=== PATIENT | male | born 1940 | race Caucasian/White ===

== ENCOUNTER 2016-10-19 10:53 | Inpatient (IN) | payer MEDICARE ==
--- NOTE | 2016-10-15 21:05 | Admit Criteria Form ---
Admission Criteria Documentation: AMBULATORY SURGERY EXCEPTION CRITERIA Ambulatory Surgery Exception Criteria ( Place 'X' for any and all applicable criteria): Surgery or procedure performed on ambulatory basis may require inpatient stay for[A] ANY ONE of the following(1)(2)(3)(4)(5)(6)(7)(8)(9): [X] I. A preoperative situation, condition, or finding that warrants inpatient stay as indicated by ANY ONE of the following: [] a) Inpatient care needed because of severity of a disease or condition rather than the surgery (eg, severe cardiac or respiratory disease, severe infection) (15) (16 ) (17) (18) [] b) Emergent procedure (eg, angioplasty for acute ischemia)(19) [X] c) Complex surgical approach or situation as indicated by ANY ONE of the following(3): [X] i) Open approach needed instead of usual endoscopic, transcatheter, or other less invasive procedure [] ii) Difficult approach because of previous operation [] iii) Airway monitoring required after open neck procedures(20)(21) [] iv) Large mass requiring unusually extensive dissection [] v) Additional complicating feature requiring inpatient care (eg, drain management)(22(23): [] d) Major surgery in a pt with high anesthetic risk as indicated by ANY ONE of the following (2)(3)(5)(7)(8): [] i) ASA risk class III or higher (severe systemic disease impairing function) [D] [] ii) Advanced age (eg, older than 85 years)(14)(24) [] iii) Symptomatic heart failure(25) [] iv) Symptomatic asthma or COPD(8)(21) [] v) Morbid obesity with hemodynamic or respiratory problems(20)( 21)(26)(27) [] vi) Obstructive sleep apnea(20)(21) [] vii) Former premature infants who are younger than 60 weeks [] viii) High risk for severe postoperative abnormalities (eg, severe postoperative hypocalcemia after parathyroidectomy for severe hyperparathyroidism)(27)( 28) [] ix) Unstable angina(25) [] e) Drug-related risk requiring inpatient stay as indicated by ANY ONE of the following(5)(10)(14)(32)(33) [] i) Procedure requires discontinuing drugs or other therapy (eg , antiarrhythmic medication, antiseizure medication), which necessitates inpatient observation or treatment.(18)(31) [] ii) Major surgery and high risk drug use as indicated by ANY ONE of the following: [] 1) Active abuse of cocaine or similar drug [] 2) Monoamine oxidase inhibitor use [] 3) Other drug identified as posing risk [] f) Inadequate outpatient care situation as indicated by ANY ONE of the following(5)(10)(14)(32)(33) [] i) Patient lives remote from medical facility and procedure has urgent complication potential, and temporary nearby residence cannot be arranged [] ii) Patient will have postprocedure incapacitation and inadequate assistance at home, or alternative level of care cannot be arranged. [] iii) Patient will have long general anesthesia or procedure side effect resolution time, and competent person to stay with patient on first postoperative night at home or alternative level of care cannot be arranged. []iv) Other inadequate outpatient situation that cannot be handled by other means [] II. A perioperative event, condition, or finding that warrants inpatient stay as indicated by ANY ONE of the following (1)(2)(3): [] a) Inadequate physiologic recovery: cardiovascular, respiratory, or hemodynamic status not normal or near preoperative baseline(18) [] b) Hemodynamic instability [] c) Patient not alert with near normal or baseline mental status [] d) Temperature not normal or as expected and not appropriate for outpatient treatment of condition [] e) Ambulatory or appropriate activity level status not yet achieved post procedure [E](34)(35)(36) [] f) Operative site not appropriate (eg, unexpected or excessive drainage or bleeding) [] g) Postoperative effects not resolved or adequately managed (eg, significant pain or vomiting not appropriate for outpatient or next level of care)(10)(12) [] h) Complicating features requiring inpatient care as indicated by ANY ONE of the following(37): [] i) Severe complications of procedure (eg, bowel injury, airway compromise, vascular injury,severe hemorrhage) [] ii) Extensive (eg, dissection far beyond usual scope of procedure ) or prolonged (eg, 120 minutes beyond usual) surgery needed requiring inpatient postoperative care [] iii) Conversion to an open or complex procedure that requires inpatient care (eg, open vs laparoscopic cholecystectomy, abdominal vs vaginal hysterectomy)(38) [] iv) Comorbid condition or test result identified during or post procedure that requires inpatient care (7) [] v) Malignant hyperthermia(30) [] vi) Other complicating feature requiring inpatient care(22)(23) Inpatient stay may be needed until ALL of the following are present (1)(2)(3)(4) (5)(6)(10)(14)(33)(40): []a) Physiologic recovery: cardiovascular, respiratory, and hemodynamic status normal or near preoperative baseline []b) Hemodynamic stability []c) Patient alert, with near normal or baseline mental status []d) Temperature appropriate: patient afebrile or temperature appropriate for outpt treatment of condition []e) Activity level appropriate: ambulatory or appropriate activity level post procedure []f) Operative site appropriate as indicated by ALL of the following: []i) Site dry or with expected drainage []ii) Any blood noted is as expected for procedure. []g) Postoperative effects resolved or managed as indicated by ALL of the following: []i) Pain management appropriate for outpatient (or next level of) care(10) []ii) Minimal nausea and vomiting: if present, successfully treated with oral medication(12) []iii) Headache, dizziness, or drowsiness (if present) are mild. []h) Voiding status acceptable as indicated by ANY ONE of the following: []i) Voiding spontaneously []ii) No voiding but instructions given for follow-up in 6 to 8 hours []iii) Urinary catheter in place, and instructions given for follow-up []i) Complicating features requiring inpatient care manageable at a lower level of care(37) []j) Comorbid conditions manageable at a lower level of care(37) The original [employer] content created by [employer] has been revised. The portions of the content which have been revised are identified through the use of italic text or in bold, and [facility] [employer] has neither reviewed nor approved the modified material. All other unmodified content is copyright [employer]. Please see references footnoted in the original [employer] edition 2016 Admission Criteria Met: Yes
[2016-10-18 10:42] LABS: Basophils % (Auto) 0.8 % (0.0-1.8); Eosinophils % (Auto) 3.5 % (0.0-4.3); Hematocrit 37.9 % (35.5-45.6); Mean Corpuscular HGB Conc 32 % (32-34); Mean Corpuscular Volume 79 fl (84-94); Platelet Count 216 K/mm3 (140-440); Red Blood Count 4.79 M/mm3 (3.65-5.03); Red Cell Distribution Width 15.2 % (13.2-15.2); White Blood Count 5.1 K/mm3 (4.5-11.0)
[2016-10-18 10:43] LABS: Mean Corpuscular Hemoglobin 25 pg (28-32)
[2016-10-18 11:23] LABS: Alanine Aminotransferase 32 units/L (7-56); Albumin 3.8 g/dL (3.9-5); Alkaline Phosphatase 123 units/L (35-129); Anion Gap 18 mmol/L; Blood Urea Nitrogen 11 mg/dL (9-20); Calcium 9.1 mg/dL (8.4-10.2); Carbon Dioxide 27 mmol/L (22-30); Chloride 97.1 mmol/L (98-107); Glucose 115 mg/dL (75-100); Potassium 3.9 mmol/L (3.6-5.0); Sodium 138 mmol/L (137-145); Total Protein 7.5 g/dL (6.3-8.2)
[~2016-10-19 10:53] MED LIST: ANCEF/STERILE WATER 2 GM/20 ML 2 GM/20 ML SYRINGE IV SCH
[2016-10-19] MEDS ORDERED: ceFAZolin 2 GM in NACL 0.9% 100 ML IV ONE (11:30)
--- NOTE | 2016-10-19 12:39 | Anesthesia Consultation ---
<ANDREINA SORTO - Last Filed: 10/19/16 12:38> Anesthesia Consult and Med Hx - Airway Anesthetic Teeth Evaluation: Dentures ROM Head & Neck: Adequate Mental/Hyoid Distance: Adequate Mallampati Class: Class II Intubation Access Assessment: Possibly Difficult - Pulmonary Exam CTA: Yes - Cardiac Exam Cardiac Exam: RRR - Pre-Operative Health Status ASA Pre-Surgery Classification: ASA2 Proposed Anesthetic Plan: General (no previous anesthesia problems) - Pulmonary Hx Smoking: No Hx Sleep Apnea: No - Cardiovascular System Hx Hypertension: Yes (pt denies meds) - Central Nervous System Hx Psychiatric Problems: No - Other Systems Hx Cancer: No Hx Obesity: Yes <MARIA TERESA BANUELOS - Last Filed: 10/19/16 13:44> Anesthesia Consult and Med Hx Date of service: 10/19/16 - Airway Anesthetic Teeth Evaluation: Poor (just few broken teeth) - Cardiovascular System Hx Coronary Artery Disease: No (???cath in past)
[2016-10-19] MEDS ORDERED: PEPCID IV NR (12:42)
[2016-10-19 13:23] LABS: Basophils % (Auto) 0.5 % (0.0-1.8); Eosinophils % (Auto) 3.2 % (0.0-4.3); Hematocrit 36.1 % (35.5-45.6); Hemoglobin 11.8 gm/dl (11.8-15.2); Mean Corpuscular HGB Conc 33 % (32-34); Mean Corpuscular Volume 79 fl (84-94); Platelet Count 214 K/mm3 (140-440); Red Blood Count 4.57 M/mm3 (3.65-5.03); Red Cell Distribution Width 15.1 % (13.2-15.2); White Blood Count 6.3 K/mm3 (4.5-11.0)
[2016-10-19] MEDS: NACL 0.9% 1000 ML 1,000 ML IV SCH (13:28)
[2016-10-19 13:30] LABS: Mean Corpuscular Hemoglobin 26 pg (28-32)
[2016-10-19 13:38] LABS: Alanine Aminotransferase 36 units/L (7-56); Albumin 3.6 g/dL (3.9-5); Alkaline Phosphatase 108 units/L (35-129); Amylase 52 units/L (27-131); Anion Gap 18 mmol/L; Blood Urea Nitrogen 9 mg/dL (9-20); Calcium 8.8 mg/dL (8.4-10.2); Carbon Dioxide 27 mmol/L (22-30); Chloride 100.4 mmol/L (98-107); Glucose 85 mg/dL (75-100); Sodium 141 mmol/L (137-145); Total Protein 7.1 g/dL (6.3-8.2)
[2016-10-19] MEDS ORDERED: SUBLIMAZE IV PRN (13:42)
[2016-10-19] MEDS ORDERED: ZOFRAN IV PRN (13:42)
--- NOTE | 2016-10-19 13:43 | Anesthesia Day of Surgery ---
Anesthesia Day of Surgery - Day of Surgery Patient Examined: Yes Patient H&P Reviewed: Yes Patient is NPO: Yes
[2016-10-19] MEDS ORDERED: DILAUDID ONE (14:06)
[2016-10-19] MEDS ORDERED: SUBLIMAZE ONE ×2 (14:07→15:00)
[2016-10-19] MEDS ORDERED: DIPRIVAN 10 MG/ML IV ONE ×2 (14:07)
[2016-10-19] MEDS ORDERED: ZOFRAN ONE (14:08)
[2016-10-19] MEDS ORDERED: XYLOCAINE MPF 2% ONE (14:08)
[2016-10-19] MEDS ORDERED: DECADRON ONE ×2 (14:08→15:21)
[2016-10-19] MEDS ORDERED: ZEMURON IV ONE (14:08)
[2016-10-19] MEDS ORDERED: NEOSTIGMINE ONE ×2 (14:10→16:28)
[2016-10-19] MEDS ORDERED: ROBINUL ONE ×3 (14:10→16:28)
[2016-10-19] MEDS ORDERED: AMIDATE IV ONE (14:57)
[2016-10-19] MEDS ORDERED: APRESOLINE ONE (15:59)
[2016-10-19] MEDS ORDERED: NACL 0.9% 1000 ML 1,000 ML ONE (16:30)
[2016-10-19] MEDS: DILAUDID IV PRN ×5 (16:42→17:58)
[2016-10-19] MEDS ORDERED: TORADOL IV PRN ×2 (17:19→17:55)
--- NOTE | 2016-10-19 18:39 | Post Anesthesia Evaluation ---
- Post Anesthesia Evaluation Patient Participated: Yes Airway Patent: Yes Stable Respiratory Function: Yes Nausea/Vomiting: No Temp > 96.8F: Yes Pain Manageable: Yes Adequeate Hydration: Yes Anesthesia Complications: No
--- NOTE | 2016-10-19 19:55 | Operative Report ---
PREOPERATIVE DIAGNOSIS: Gallbladder disease. POSTOPERATIVE DIAGNOSIS: Gallbladder disease. PROCEDURE: Open cholecystectomy. SURGEON: Ron Valencia MD. PUBLIC HEALTH NUTRITIONIST: Dr. Laguna. ANESTHESIA: General. ESTIMATED BLOOD LOSS: Minimal. DRAINS: One 19 Federico drain left. COMPLICATIONS: No complications. FINDINGS: This was a difficult case due to the extensive amount of adhesions and inflammation surrounding the right upper quadrant. DESCRIPTION OF PROCEDURE: The patient was taken to the operating room, prepped and draped in usual sterile fashion. A right subcostal incision was made and abdomen entered. Upon entrance into the abdomen, large amount of inflammation was noted, which involved the omentum, the colon and the gallbladder fossa. Slow and tedious dissection was carried out until the gallbladder was able to be identified. Some right subphrenic inflammation and adhesions were also noted, which limited mobility. Gallbladder was grasped at the fundus and retracted towards the right subcostal margin. The cholecystostomy tube that had been placed during the patient's previous admission around 3-4 weeks ago was cut and removed. Wet laps were used to isolate the gallbladder from the transverse colon and stomach. A slow dissection was used with electrocautery from the fundus down towards the infundibulum. Again, a fair amount of oozing was encountered throughout dissection due to all the inflammation. This oozing was controlled with electrocautery and subsequently with the Karyna powder and SurgiSeal. Dissection was slowly carried down towards the neck of the gallbladder. The cystic duct was then identified. The duct was triply clipped and transected. The cystic artery was also doubly clipped and transected. The entire area was then irrigated copiously and dried. Once again, the clips were inspected and noted to be securely in place with no evidence of bleeding or bile leak. The gallbladder fossa area was once again cauterized and subsequently Karyna and SurgiSeal were placed. A 19-Federico was left draining in the gallbladder fossa. The drain was brought through a separate stab incision and secured to the skin with a 2-0 silk suture. The area was once again inspected and noted to be dry. The posterior fascia was then closed with running 0 Vicryl suture. Anterior fascia closed with interrupted #1 Vicryl. Subcutaneous tissues irrigated and skin closed with alonso. The patient tolerated procedure well and left the OR in stable condition. [facility]# [id number] SULTANA/KALIE
[2016-10-19] MEDS: MORPHINE IV PRN (20:58)
[2016-10-19] MEDS: ZOFRAN IV PRN (20:58)
[2016-10-20] MEDS: D5W/0.45% NACL/KCL 20 MEQ 20 MEQ/1,000 ML BAG IV SCH ×3 (00:42→20:21)
[2016-10-20] MEDS: MORPHINE IV PRN ×3 (04:38→20:22)
[2016-10-20] MEDS: ZOFRAN IV PRN ×2 (04:38→12:54)
[2016-10-20 07:56] LABS: Basophils % (Auto) 0.1 % (0.0-1.8); Hematocrit 32.6 % (35.5-45.6); Hemoglobin 10.2 gm/dl (11.8-15.2); Mean Corpuscular HGB Conc 31 % (32-34); Mean Corpuscular Volume 79 fl (84-94); Platelet Count 202 K/mm3 (140-440); Red Blood Count 4.12 M/mm3 (3.65-5.03); Red Cell Distribution Width 15.2 % (13.2-15.2); White Blood Count 12.9 K/mm3 (4.5-11.0)
[2016-10-20 08:00] LABS: Mean Corpuscular Hemoglobin 25 pg (28-32)
[2016-10-20 08:10] LABS: Alanine Aminotransferase 50 units/L (7-56); Alkaline Phosphatase 78 units/L (35-129); Anion Gap 17 mmol/L; BUN/Creatinine Ratio 21.66; Blood Urea Nitrogen 13 mg/dL (9-20); Calcium 8.2 mg/dL (8.4-10.2); Carbon Dioxide 24 mmol/L (22-30); Chloride 100.4 mmol/L (98-107); Glucose 150 mg/dL (75-100); Potassium 4.8 mmol/L (3.6-5.0); Sodium 137 mmol/L (137-145)
--- NOTE | 2016-10-20 11:55 | Progress Note ---
Assessment and Plan POD #1 Pt feeling well. without compl Abd soft. dressings dry -BS low h/h & BP noted. repeat h/h 2 pm. RN instructed to call me with results stable OOB as cher Selected Entries 10/20/16 07:10 Temperature 98.0 F Pulse Rate [ 77 Right] Respiratory 18 Rate Blood Pressure 96/53 [Right Arm] Laboratory Tests 10/19/16 10/20/16 10/20/16 12:50 06:45 06:45 Hgb 11.8 10.2 L Hct 36.1 32.6 L Total Bilirubin 1.20 AST 68 H ALT 50 Alkaline Phosphatase 78 Objective Vital Signs - 12hr 10/20/16 10/20/16 10/20/16 04:45 07:10 10:00 Temperature 97.8 F 98.0 F Pulse Rate [ 84 77 Right] Respiratory 16 18 Rate Blood Pressure 100/56 96/53 [Right Arm] O2 Sat by Pulse 93 93 Oximetry - Labs 10/20/16 06:45 10/20/16 06:45 Diabetes panel 10/19/16 10/20/16 Range/Units 12:50 06:45 Carbon Dioxide 27 24 (22-30) mmol/L BUN 9 13 (9-20) mg/dL Creatinine 0.5 L 0.6 L (0.8-1.5) mg/dL Glucose 85 150 H (75-100) mg/dL Calcium 8.8 8.2 L (8.4-10.2) mg/dL AST 40 68 H (5-40) units/L ALT 36 50 (7-56) units/L Alkaline Phosphatase 108 78 (35-129) units/L Total Protein 7.1 6.0 L (6.3-8.2) g/dL Albumin 3.6 L 3.0 L (3.9-5) g/dL Calcium panel 10/19/16 10/20/16 Range/Units 12:50 06:45 Calcium 8.8 8.2 L (8.4-10.2) mg/dL Albumin 3.6 L 3.0 L (3.9-5) g/dL Pituitary panel 10/19/16 10/20/16 Range/Units 12:50 06:45 Carbon Dioxide 27 24 (22-30) mmol/L BUN 9 13 (9-20) mg/dL Creatinine 0.5 L 0.6 L (0.8-1.5) mg/dL Glucose 85 150 H (75-100) mg/dL Calcium 8.8 8.2 L (8.4-10.2) mg/dL Adrenal panel 10/19/16 10/20/16 Range/Units 12:50 06:45 Carbon Dioxide 27 24 (22-30) mmol/L BUN 9 13 (9-20) mg/dL Creatinine 0.5 L 0.6 L (0.8-1.5) mg/dL Glucose 85 150 H (75-100) mg/dL Calcium 8.8 8.2 L (8.4-10.2) mg/dL Total Bilirubin 0.90 1.20 (0.1-1.2) mg/dL AST 40 68 H (5-40) units/L ALT 36 50 (7-56) units/L Alkaline Phosphatase 108 78 (35-129) units/L Total Protein 7.1 6.0 L (6.3-8.2) g/dL Albumin 3.6 L 3.0 L (3.9-5) g/dL
[2016-10-20 14:02] LABS: Basophils % (Auto) 0.1 % (0.0-1.8); Eosinophils % (Auto) 0.1 % (0.0-4.3); Hematocrit 34.3 % (35.5-45.6); Hemoglobin 10.6 gm/dl (11.8-15.2); Mean Corpuscular HGB Conc 31 % (32-34); Mean Corpuscular Hemoglobin 25 pg (28-32); Mean Corpuscular Volume 81 fl (84-94); Platelet Count 214 K/mm3 (140-440); Red Blood Count 4.25 M/mm3 (3.65-5.03); Red Cell Distribution Width 15.3 % (13.2-15.2); White Blood Count 11.5 K/mm3 (4.5-11.0)
[2016-10-21 05:03] LABS: Basophils % (Auto) 0.1 % (0.0-1.8); Eosinophils % (Auto) 0.8 % (0.0-4.3); Hematocrit 29.3 % (35.5-45.6); Hemoglobin 9.4 gm/dl (11.8-15.2); Mean Corpuscular HGB Conc 32 % (32-34); Mean Corpuscular Volume 80 fl (84-94); Platelet Count 164 K/mm3 (140-440); Red Blood Count 3.67 M/mm3 (3.65-5.03); Red Cell Distribution Width 15.3 % (13.2-15.2); White Blood Count 7.4 K/mm3 (4.5-11.0)
[2016-10-21 05:08] LABS: Mean Corpuscular Hemoglobin 26 pg (28-32)
[2016-10-21] MEDS: D5W/0.45% NACL/KCL 20 MEQ 20 MEQ/1,000 ML BAG IV SCH ×2 (06:03→16:15)
--- NOTE | 2016-10-21 11:09 | Progress Note ---
Assessment and Plan POD #2 Pt feeling well. minimal flatus. OOB to the bathroom. Abd soft. dressings dry stable monitor h/h attempt cl liq diet Selected Entries 10/21/16 04:00 Temperature 98.3 F Pulse Rate [ 70 Right] Respiratory 20 Rate Blood Pressure 118/62 [Right Arm] Laboratory Tests 10/21/16 04:48 WBC 7.4 Hgb 9.4 L Hct 29.3 L Objective Vital Signs - 12hr 10/21/16 10/21/16 10/21/16 00:00 00:54 04:00 Temperature 98.2 F 98.3 F Pulse Rate [ 74 82 70 Right] Respiratory 20 14 20 Rate Blood Pressure 117/60 118/62 [Right Arm] O2 Sat by Pulse 98 96 97 Oximetry 10/21/16 08:01 Temperature Pulse Rate [ Right] Respiratory Rate Blood Pressure [Right Arm] O2 Sat by Pulse 97 Oximetry - Labs 10/21/16 04:48 10/20/16 06:45
[2016-10-21] MEDS ORDERED: NORCO 5/325 PO PRN (11:11)
[2016-10-21 13:34] LABS: Basophils % (Auto) 0.3 % (0.0-1.8); Eosinophils % (Auto) 0.8 % (0.0-4.3); Hematocrit 33.2 % (35.5-45.6); Hemoglobin 10.6 gm/dl (11.8-15.2); Mean Corpuscular HGB Conc 32 % (32-34); Mean Corpuscular Volume 80 fl (84-94); Platelet Count 191 K/mm3 (140-440); Red Blood Count 4.13 M/mm3 (3.65-5.03); Red Cell Distribution Width 15.4 % (13.2-15.2); White Blood Count 7.3 K/mm3 (4.5-11.0)
[2016-10-21 13:39] LABS: Mean Corpuscular Hemoglobin 26 pg (28-32)
--- NOTE | 2016-10-21 14:35 | Progress Note ---
Assessment and Plan S/P Cholecystectomy. Hypertension. DM 2. Patient is doing well post op. His Echo was normal done in early September. Subjective Date of service: 10/21/16 Interval history: Patint is french speaking.Pt seen early September with acute cholycystitis/sepsis with elevated LFT and elevated WBC and fever CT placement of cholycystomy tube for drainage and sent home by september 1st week. CXR c/w lingular infiltrate now had open cholycystectomy Objective Vital Signs Temp Pulse Resp BP Pulse Ox 10/21/16 08:01 97 10/21/16 08:00 98.3 F 84 20 129/73 97 10/21/16 04:00 98.3 F 70 20 118/62 97 10/21/16 00:54 82 14 96 10/21/16 00:00 98.2 F 74 20 117/60 98 10/20/16 20:00 98.3 F 75 20 117/70 98 10/20/16 16:00 98.0 F 74 20 107/65 - Physical Examination General: Appears Well, No Apparent Distress HEENT: Positive: Mucus Membranes Moist Neck: Positive: neck supple. Negative: JVD/HJR Cardiac: Positive: Regular Rate Lungs: Positive: clear to auscultation, Normal Breath Sounds Abdomen: Positive: Active Bowel Sounds Extremities: Absent: edema - Labs and Meds CBC 10/21/16 10/21/16 Range/Units 04:48 13:05 WBC 7.4 7.3 (4.5-11.0) K/mm3 RBC 3.67 4.13 (3.65-5.03) M/mm3 Hgb 9.4 L 10.6 L (11.8-15.2) gm/dl Hct 29.3 L 33.2 L (35.5-45.6) % Plt Count 164 191 (140-440) K/mm3 Lymph # 1.3 1.1 L (1.2-5.4) K/mm3 Jessamine # 0.8 0.6 (0.0-0.8) K/mm3 Eos # 0.1 0.1 (0.0-0.4) K/mm3 Baso # 0.0 0.0 (0.0-0.1) K/mm3
[2016-10-22] MEDS: D5W/0.45% NACL/KCL 20 MEQ 20 MEQ/1,000 ML BAG IV SCH (01:18)
[2016-10-22 04:38] LABS: Basophils % (Auto) 0.3 % (0.0-1.8); Hematocrit 29.8 % (35.5-45.6); Hemoglobin 9.6 gm/dl (11.8-15.2); Mean Corpuscular HGB Conc 32 % (32-34); Mean Corpuscular Volume 80 fl (84-94); Platelet Count 191 K/mm3 (140-440); Red Blood Count 3.73 M/mm3 (3.65-5.03); Red Cell Distribution Width 15.1 % (13.2-15.2); White Blood Count 7.2 K/mm3 (4.5-11.0)
[2016-10-22 04:41] LABS: Mean Corpuscular Hemoglobin 26 pg (28-32)
--- NOTE | 2016-10-22 09:34 | Event Note ---
Discussed with Dr. Valencia yesterday patient does have normal renal function consult was placed by mistake Patient does not need a renal consult
--- NOTE | 2016-10-22 10:00 | Progress Note ---
Assessment and Plan Pt feeling well, without compl. cher cl liq ambulated down augustin Abd soft. +BS dressings dry stable advance diet Selected Entries 10/22/16 07:00 Temperature 98.1 F Pulse Rate [ 73 Right] Respiratory 20 Rate Blood Pressure 112/66 [Right Arm] Laboratory Tests 10/22/16 04:06 WBC 7.2 Hgb 9.6 L Hct 29.8 L Objective Vital Signs - 12hr 10/22/16 10/22/16 10/22/16 00:00 04:00 07:00 Temperature 98.3 F 98.4 F 98.1 F Pulse Rate [ 79 75 73 Right] Respiratory 20 20 20 Rate Blood Pressure 118/64 115/65 112/66 [Right Arm] O2 Sat by Pulse 96 94 96 Oximetry - Labs 10/22/16 04:06 10/20/16 06:45
[2016-10-22] MEDS ORDERED: D5W/0.45% NACL/KCL 20 MEQ 20 MEQ/1,000 ML BAG IV SCH (11:00)
[2016-10-22] MEDS: MORPHINE IV PRN (17:40)
[2016-10-23] MEDS: NACL 0.9% 1000 ML 1,000 ML IV SCH (05:30)
--- NOTE | 2016-10-23 09:18 | Progress Note ---
Assessment and Plan POD #4 Pt feelilng well without compl. cher full liq Abd soft, non tender. +BS. incision clean & dry surgically stable advance to solid low fat diet may d/c today if diet cher & cleared by med rto next wed (remove kevin drain prior to d/c) Selected Entries 10/23/16 08:00 Temperature 98.1 F Pulse Rate [ 68 Right] Respiratory 20 Rate Blood Pressure 132/70 [Right Arm] Objective Vital Signs - 12hr 10/22/16 10/23/16 10/23/16 22:00 05:30 08:00 Temperature 98 F 98.1 F Pulse Rate [ 78 66 68 Right] Respiratory 16 20 Rate Respiratory 16 Rate [Abdomen] Blood Pressure 138/75 132/70 [Right Arm] O2 Sat by Pulse 96 98 97 Oximetry - Labs 10/22/16 04:06 10/20/16 06:45
--- NOTE | 2016-10-23 09:22 | Discharge Summary ---
Providers - Providers Date of Admission: 10/19/16 11:59 Attending physician: RODRI VALENCIA 10/19/16 16:32 Consult to Physician [CONS] Routine Consulting Provider: CELIA WOOTEN Reason For Exam: DM & Heart disease Place consult to:: Dr. Solomon Notified:: yes by Dr. Valencia face to face Was contact made?: Yes Consult to Physician [CONS] Routine Consulting Provider: KRUPA WOOD Reason For Exam: heart disease pt know to them Place consult to:: Eva Notified:: yes Phone number called:: [phone] Was contact made?: Yes Time called:: 11:00 10/20/16 10:58 Physical Therapy Evaluation and Treat [CONS] Routine Comment: Reason For Exam: ambulation 10/20/16 11:45 Consult to Physician [CONS] Routine Consulting Provider: ALFREDA DIAS Reason For Exam: nephro consult Place consult to:: Dr. Dias Notified:: called Primary care physician: OSMAR CAMACHO Hospitalization Condition: Stable Disposition: DISCHARGED TO HOME OR SELFCARE Core Measure Documentation - Palliative Care Palliative Care/ Comfort Measures: Not Applicable - Core Measures Any of the following diagnoses?: none Exam - Constitutional Vitals: Temp Pulse Resp BP Pulse Ox 98.1 F 68 20 132/70 97 10/23/16 08:00 10/23/16 08:00 10/23/16 08:00 10/23/16 08:00 10/23/16 08:00 Plan Activity: other (no lifting over 5 lbs x 3 wks. keep dressings dry x 48 more hrs. solid low fat diet.) Weight Bearing Status: Partial Weight Bearing Diet: low fat Wound: keep clean and dry Follow up with: RODRI VALENCIA MD [Staff Physician] - 10/31/16
--- NOTE | 2016-10-23 10:54 | Progress Note ---
Assessment and Plan Assessment: S/P Cholecystectomy. Hypertension. DM 2. Patient is doing well post op. His Echo was normal done in early September. Plan: Currently stable cardiac status. Pt may d/c home today from cardiology standpoint. Recommend follow up in our office with Dr. Christopher within 2 weeks of hospital discharge ([phone]). The patient has been seen in conjunction with Dr. Hernandez who agrees with the assessment and plan of care. Subjective Date of service: 10/23/16 Principal diagnosis: acute cholecystitis Interval history: Pt resting in bed, denies any complaints. Advancing diet as tolerated. Objective Last Vital Signs Temp 98.1 F 10/23/16 08:00 Pulse 68 10/23/16 08:00 Resp 20 10/23/16 08:00 BP 132/70 10/23/16 08:00 Pulse Ox 97 10/23/16 08:00 - Physical Examination General: Appears Well, No Apparent Distress HEENT: Positive: Mucus Membranes Moist Neck: Positive: neck supple. Negative: JVD/HJR Cardiac: Positive: Reg Rate and Rhythm, S1/S2 Lungs: Positive: clear to auscultation Neuro: Positive: Grossly Intact Abdomen: Positive: Active Bowel Sounds, Other (gadiel surgical site c/d/i) Musculoskeletal: No Pain Extremities: Absent: edema
--- NOTE | 2016-10-23 13:40 | Event Note ---
Date: 10/23/16 Patient was seen, examined and is medically optimized for discharge by primary team
--- NOTE | 2016-10-23 14:57 | Consultation ---
History of Present Illness - Reason for Consult Consult date: 10/23/16 Medical management Requesting physician: ILAN OJEDA - History of Present Illness 76-year-old man with a history of diabetes comes emergency room with complaints of right upper quadrant pain which she describes as a sharp pain, intermittent in nature, unable to say how long it last for, intensity 7/10, no radiation any cannot identify exacerbating or relieving factors. Pt s/p Open Choleycystectomy on 10/19/16. Pt's dressing to the right sided abdomen was clean , dry, intact with ANA CRISTINA drain approximately 10 ml of serosanguineous drainage noted. Positive hypoactive bowel sounds present and noted. Patient denies chest pain, palpitation, shortness of breath, cough, hematochezia, dysuria, frequency, focal weakness, dysarthria, fever chills, polydipsia polyuria, hot or cold intolerance, easy bruisability, or rash or bleeding from mucosal membrane, rhinorrhea, epistaxis, earache, tinnitus, blurry vision, eye discharge , anxiety, depression. Other review of systems negative Past History Past Medical History: diabetes, hypertension, other (Choleycystitis) Past Surgical History: cholecystectomy, Other (Hip surgery) Social history: denies: smoking, alcohol abuse Family history: diabetes Medications and Allergies Allergies Allergy/AdvReac Type Severity Reaction Status Date / Time No Known Allergies Allergy Unverified 09/25/16 17:05 Home Medications Medication Instructions Recorded Confirmed Last Taken Type HYDROcodone/APAP 5-325 [Burgess 1 each PO Q4HR PRN #30 tablet 10/23/16 Unknown Rx 5/325] Active Meds: Active Medications Acetaminophen/Hydrocodone Bitart (Burgess 5/325) 1 each PO Q4H PRN PRN Reason: Pain, Moderate (4-6) Sodium Chloride (Nacl 0.9% 1000 Ml) 1,000 mls @ 100 mls/hr IV DIRECT PAIGE Last Admin: 10/23/16 05:30 Dose: 100 mls/hr Potassium Chloride/Dextrose/Sod Cl (D5w/0.45% Nacl/Kcl 20 Meq) 20 meq in 1,000 mls @ 75 mls/hr IV DIRECT PAIGE Last Admin: 10/22/16 01:18 Dose: 100 mls/hr Potassium Chloride/Dextrose/Sod Cl (D5w/0.45% Nacl/Kcl 20 Meq) 20 meq in 1,000 mls @ 75 mls/hr IV DIRECT PAIGE Morphine Sulfate (Morphine) 2 mg IV Q3H PRN PRN Reason: Pain, Moderate (4-6) Last Admin: 10/22/16 17:40 Dose: 2 mg Ondansetron HCl (Zofran) 4 mg IV Q4H PRN PRN Reason: N/V unrelieved by Reglan Last Admin: 10/20/16 12:54 Dose: 4 mg Exam - Constitutional Vitals: Temp Pulse Resp BP Pulse Ox 98 F 70 16 130/78 97 10/23/16 12:00 10/23/16 12:00 10/23/16 12:00 10/23/16 12:00 10/23/16 08:00 General appearance: Present: no acute distress - EENT Eyes: Present: PERRL ENT: hearing intact, clear oral mucosa - Neck Neck: Present: supple, normal ROM - Respiratory Respiratory effort: normal Respiratory: bilateral: CTA - Cardiovascular Rhythm: regular Heart Sounds: Present: S1 & S2. Absent: rub, click - Extremities Extremities: pulses symmetrical, No edema - Abdominal General gastrointestinal: Present: soft, non-tender, hypoactive bowel sounds Male genitourinary: Present: deferred - Rectal Rectal Exam: deferred - Integumentary Integumentary: Present: warm, dry - Musculoskeletal Musculoskeletal: gait normal, strength equal bilaterally - Psychiatric Psychiatric: intact judgment & insight - Neurologic Neurologic: moves all extremities - Allied Health Allied health notes reviewed: nursing Results - Labs CBC & Chem 7: 10/22/16 04:06 10/20/16 06:45 Assessment and Plan 76-year-old man with a history of diabetes comes emergency room with complaints of right upper quadrant pain which she describes as a sharp pain, intermittent in nature, unable to say how long it last for, intensity 7/10, no radiation any cannot identify exacerbating or relieving factors. Pt s/p Open Choleycystectomy on 10/19/16. Pt's dressing to the right sided abdomen was clean , dry, intact with ANA CRISTINA drain approximately 10 ml of serosanguineous drainage noted. Positive hypoactive bowel sounds present and noted. Patient denies chest pain, palpitation, shortness of breath, cough, hematochezia, dysuria, frequency, focal weakness, dysarthria, fever chills, polydipsia polyuria, hot or cold intolerance, easy bruisability, or rash or bleeding from mucosal membrane, rhinorrhea, epistaxis, earache, tinnitus, blurry vision, eye discharge , anxiety, depression. Other review of systems negative. 1. Hypertension - on IV meds prn only, and has not required themcontrolled continue lifestyle management 2. DM - Controlled. Accu-check and insulin sliding scale ordered, continue lifestyle management upon discharge 3. Choleycyctitis - s/p Cholecyctectomy on 10/19/16 managed by surgery 4. DVT prophylaxis - per primary team
[2016-10-23 17:35] VITALS: BP 132/67
--- NOTE | 2016-10-23 20:59 | Discharge Summary ---
DISCHARGE DIAGNOSIS: Gallbladder disease. PROCEDURE WHILE IN HOSPITAL: Open cholecystectomy. HOSPITAL COURSE: The patient is a 76-year-old gentleman with multiple medical problems including cardiac disease. The patient had been admitted to the hospital a few weeks ago with very bad acute cholecystitis. At that time, a CT-guided cholecystostomy tube drainage was performed. ____ was successfully performed. The patient recovered and subsequently was discharged. At this time, the patient returns to the hospital for semi-elective cholecystectomy. The patient was admitted and underwent cholecystectomy without incident. His postoperative course has been essentially unremarkable. The patient was kept n.p.o. for the first 48 hours postop and subsequently started on a liquid diet. The patient yesterday was advanced to full liquid diet, which he has tolerated without incident. His abdomen is soft and nontender. He is passing flatus. His incision is clean and dry. Postoperative lab work is all essentially within normal limits including his LFTs. At this time, the patient will be advanced to a solid low fat diet and will tentatively be discharged today if his diet is well tolerated and he is medically cleared. The patient has been instructed to call me immediately if he has any evidence of nausea, vomiting, abdominal pain, or fever. Of note, the patient will be followed up in the office next week. The patient will also be followed up by his primary care physician. JOB# [id number] SULTANA/KALIE
== END 2016-10-23 18:00 | disposition home or self-care (01) | DRG 416 ==
LOC: 3A 11:59 → EDSTATUS 14:15 → 2B-SURG 15:48
PROVIDERS: ADMIT Surgery; ATTEND Surgery
PROC: 0FT40ZZ Resection of Gallbladder, Open Approach (ICD-10-PCS; principal; 2016-10-19)
PROC: 0DNW0ZZ Release Peritoneum, Open Approach (ICD-10-PCS; 2016-10-19)
DX: K81.0 Acute cholecystitis (principal); I10 Essential (primary) hypertension; E11.9 Type 2 diabetes mellitus without complications; K66.0 Peritoneal adhesions (postprocedural) (postinfection); E66.9 Obesity, unspecified; Z68.36 Body mass index [BMI] 36.0-36.9, adult; Z83.3 Family history of diabetes mellitus
CPT/HCPCS: 36415; 80053; 82150; 82962; 85025; 88304; 94760; G8978-GP; G8979-GP; G8980-GP; J0360; J0690; J1100; J1170; J1885; J2270; J2405; J2704; J2710; J3010; J7030